=== PATIENT | female | born 1935 | race Caucasian/White ===

== ENCOUNTER → 2016-06-29 | Outpatient (REF) | payer MEDICARE ==
[~2016-06-29] MED LIST: ASPI81TA85 PO; ATEN100T PO; CALCIUM D PO; CENTTAB12 PO; CO Q PO; FISH5CAP PO; FLAX1300 PO; HYDR25TAB PO; VITA500C24 PO
== END ==
LOC: M LAB REF 16:57
PROVIDERS: ATTEND Nurse Practitioner Family
DX: R35.0 Frequency of micturition (principal)

== ENCOUNTER → 2016-08-17 | Outpatient (CLI) | payer MEDICARE ==
--- NOTE | 2016-08-18 09:07 | DEXA ---
AP SPINE L1 - L4 1.062 -1.1 1.4 LT FEMUR TOTAL 0.872 -1.1 1.5 RT FEMUR TOTAL 0.840 -1.3 1.2 TOTAL BODY TOTAL OTHER DUAL FEMUR FRAX* ASSESSMENT Risk factors: Premature menopause. 10 year probability of fracture Major osteoporotic fracture 12.7 % Hip fracture 3.8 % COMMENTS: There is low bone density of the spine and hips. The density of the spine has increased 6.8% since the initial exam on 2005. The spine density has increased 0.0% since the most recent exam on 08/13/2014. The density of the left hip has increased 0.0% since the initial exam on 2005. The density of the left hip has decreased 0.7% since the most recent exam on . The density of the right hip has decreased 0.9% since the initial exam on 2005. The density of the right hip has decreased 1.3% since the most recent exam on . FOLLOW-UP: Recommendation for the next bone density exam: 2 years. KATH
== END ==
LOC: M WHC 10:22
PROVIDERS: ATTEND Nurse Practitioner Family
DX: M81.0 Age-related osteoporosis without current pathological fracture (principal)

== ENCOUNTER → 2016-09-28 | Outpatient (REF) | payer MEDICARE | LOC: M LAB REF 12:50 | PROVIDERS: ATTEND Physician Assistant | DX: J02.9 Acute pharyngitis, unspecified (principal) ==

== ENCOUNTER → 2016-11-04 | Outpatient (REF) | payer MEDICARE | LOC: M LAB REF 16:33 | PROVIDERS: ATTEND Nurse Practitioner Family | DX: N30.00 Acute cystitis without hematuria (principal) ==

== ENCOUNTER → 2016-12-28 | Outpatient (REF) | payer MEDICARE | LOC: M LAB REF 11:55 | PROVIDERS: ATTEND Nurse Practitioner Family | DX: N30.00 Acute cystitis without hematuria (principal) ==

== ENCOUNTER → 2017-11-19 | Outpatient (REF) | payer MEDICARE ==
[2017-11-19 21:39] LABS: APPEARANCE, URINE HAZY (CLEAR); BACTERIA, URINE AUTO NEGATIVE (NEGATIVE); BILIRUBIN, URINE AUTO NEGATIVE (NEGATIVE); BLOOD, URINE BLOOD NEGATIVE (NEGATIVE); COLOR, URINE YELLOW (YELLOW); GLUCOSE, URINE (UA) AUTO NEGATIVE (NEGATIVE); KETONE, URINE AUTO NEGATIVE (NEGATIVE); LEUKOCYTE ESTERASE, URINE AUTO 3+ (NEGATIVE); MUCUS, URINE SMALL (NEGATIVE); NITRITE, URINE AUTO NEGATIVE (NEGATIVE); PROTEIN, URINE AUTO NEGATIVE (NEGATIVE); RBC, URINE AUTO 1 /HPF (0-3); SQUAMOUS EPITHELIAL CELL UR AU 0 /HPF (0-6); UROBILINOGEN, URINE AUTO 0.2 mg/dL (0.0-2.0); WBC, URINE AUTO 10 /HPF (0-3)
== END ==
LOC: M LAB REF 21:10
DX: N39.0 Urinary tract infection, site not specified (principal)
CPT/HCPCS: 81001

== ENCOUNTER → 2017-12-17 | Outpatient (REF) | payer MEDICARE ==
[2017-12-17 22:15] LABS: APPEARANCE, URINE CLEAR (CLEAR); BACTERIA, URINE AUTO 1+ (NEGATIVE); BILIRUBIN, URINE AUTO NEGATIVE (NEGATIVE); BLOOD, URINE BLOOD NEGATIVE (NEGATIVE); COLOR, URINE YELLOW (YELLOW); GLUCOSE, URINE (UA) AUTO NEGATIVE (NEGATIVE); KETONE, URINE AUTO NEGATIVE (NEGATIVE); LEUKOCYTE ESTERASE, URINE AUTO NEGATIVE (NEGATIVE); MUCUS, URINE SMALL (NEGATIVE); NITRITE, URINE AUTO NEGATIVE (NEGATIVE); PROTEIN, URINE AUTO NEGATIVE (NEGATIVE); RBC, URINE AUTO 0 /HPF (0-3); SPECIFIC GRAVITY URINE AUTO 1.006 (1.002-1.035); SQUAMOUS EPITHELIAL CELL UR AU 0 /HPF (0-6); UROBILINOGEN, URINE AUTO 0.2 mg/dL (0.0-2.0); WBC, URINE AUTO 0 /HPF (0-3)
== END ==
LOC: M LAB REF 21:54
DX: N39.0 Urinary tract infection, site not specified (principal)
CPT/HCPCS: 81001

== ENCOUNTER → 2018-03-24 | Outpatient (REF) | payer MEDICARE | LOC: M LAB REF 15:52 | PROVIDERS: ATTEND Nurse Practitioner Family | DX: N39.0 Urinary tract infection, site not specified (principal) ==

== ENCOUNTER → 2018-07-08 | Outpatient (REF) | payer MEDICARE ==
[~2018-07-08] MED LIST changes: +HYDR-2541 PO; -HYDR25TAB PO
[2018-07-08 19:44] LABS: APPEARANCE, URINE CLEAR (CLEAR); BACTERIA, URINE AUTO NEGATIVE (NEGATIVE); BILIRUBIN, URINE AUTO NEGATIVE (NEGATIVE); BLOOD, URINE BLOOD NEGATIVE (NEGATIVE); COLOR, URINE YELLOW (YELLOW); GLUCOSE, URINE (UA) AUTO NEGATIVE (NEGATIVE); KETONE, URINE AUTO NEGATIVE (NEGATIVE); LEUKOCYTE ESTERASE, URINE AUTO TRACE (NEGATIVE); NITRITE, URINE AUTO NEGATIVE (NEGATIVE); PROTEIN, URINE AUTO NEGATIVE (NEGATIVE); RBC, URINE AUTO 0 /HPF (0-3); SPECIFIC GRAVITY URINE AUTO 1.005 (1.002-1.035); SQUAMOUS EPITHELIAL CELL UR AU 0 /HPF (0-6); UROBILINOGEN, URINE AUTO 0.2 mg/dL (0.0-2.0); WBC, URINE AUTO 0 /HPF (0-3)
== END ==
LOC: M LAB REF 10:59
PROVIDERS: ATTEND Nurse Practitioner Family
DX: N39.0 Urinary tract infection, site not specified (principal)

== ENCOUNTER → 2018-07-21 | Outpatient (REF) | payer MEDICARE ==
[2018-07-21 14:31] LABS: APPEARANCE, URINE CLEAR (CLEAR); BACTERIA, URINE AUTO NEGATIVE (NEGATIVE); BILIRUBIN, URINE AUTO NEGATIVE (NEGATIVE); BLOOD, URINE BLOOD NEGATIVE (NEGATIVE); COLOR, URINE YELLOW (YELLOW); GLUCOSE, URINE (UA) AUTO NEGATIVE (NEGATIVE); KETONE, URINE AUTO NEGATIVE (NEGATIVE); LEUKOCYTE ESTERASE, URINE AUTO 2+ (NEGATIVE); MUCUS, URINE SMALL (NEGATIVE); NITRITE, URINE AUTO NEGATIVE (NEGATIVE); PROTEIN, URINE AUTO NEGATIVE (NEGATIVE); RBC, URINE AUTO 5 /HPF (0-3); SPECIFIC GRAVITY URINE AUTO 1.016 (1.002-1.035); SQUAMOUS EPITHELIAL CELL UR AU 0 /HPF (0-6); UROBILINOGEN, URINE AUTO 0.2 mg/dL (0.0-2.0); WBC, URINE AUTO 1 /HPF (0-3)
== END ==
LOC: M LAB REF 12:42
PROVIDERS: ATTEND Internal Medicine
DX: R35.0 Frequency of micturition (principal); N39.0 Urinary tract infection, site not specified

== ENCOUNTER → 2018-07-24 | Outpatient (REF) | payer MEDICARE | LOC: M LAB REF 16:16 | PROVIDERS: ATTEND Nurse Practitioner Family | DX: N95.2 Postmenopausal atrophic vaginitis (principal); M54.5 Low back pain ==

== ENCOUNTER → 2018-08-19 | Outpatient (REF) | payer MEDICARE ==
[2018-08-19 19:38] LABS: APPEARANCE, URINE MANUAL HAZY (CLEAR); COLOR, URINE MANUAL YELLOW (YELLOW); PH,URINE MAN 8.5 UNITS (5.0 - 7.0)
[2018-08-19 19:39] LABS: BILIRUBIN, URINE MANUAL NEGATIVE (NEGATIVE); BLOOD URINE MANUAL NEGATIVE (NEGATIVE); GLUCOSE, URINE (UA) MANUAL NEGATIVE (NEGATIVE); KETONE, URINE MANUAL NEGATIVE (NEGATIVE); LEUKOCYTE ESTERASE, URINE MAN TRACE (NEGATIVE); NITRITE, URINE MANUAL TRACE (NEGATIVE); PROTEIN, URINE MANUAL NEGATIVE (NEGATIVE); SPECIFIC GRAVITY,URINE MANUAL 1.005 (1.002-1.035); UROBILINOGEN, URINE MANUAL NORMAL (NORMAL)
[2018-08-19 19:42] LABS: AMORPHOUS SEDIMENT, URINE SMALL AMOUNT (NEGATIVE); BACTERIA, URINE SMALL AMOUNT; CALCIUM OXALATE CRYSTALS,URINE SMALL AMOUNT /hpf; HYALINE CAST, URINE NONE SEEN /lpf (0-1); RBC, URINE NONE SEEN /hpf (0-3); SQUAMOUS EPITHELIAL CELL URINE SMALL AMOUNT /hpf (SMALL AMT); WBC, URINE 0-1 /hpf (0-3)
== END ==
LOC: M LAB REF 11:22
PROVIDERS: ATTEND Physician Assistant Medical
DX: N39.0 Urinary tract infection, site not specified (principal)

== ENCOUNTER → 2018-09-12 | Outpatient (REF) | payer MEDICARE | LOC: M LAB REF 16:43 | PROVIDERS: ATTEND Internal Medicine | DX: R30.0 Dysuria (principal) ==

== ENCOUNTER → 2018-09-26 | Outpatient (CLI) | payer MEDICARE ==
--- NOTE | 2018-09-26 09:26 | REPMRS ---
Patient History The patient states she had a clinical breast exam in 08/2018. Family history of colorectal cancer at age 50 or over in father. 3D TOMOSYNTHESIS WAS PERFORMED. The Henrique Hawkins lifetime risk for breast cancer is 0.2%. Digital Woman Screen Mammo: September 26, 2018 - Exam #: [id number] Bilateral CC and MLO view(s) were taken. Technologist: Heaven Salguero, Technologist Prior study comparison: August 13, 2014, digital woman screen mammo performed at [facility]. August 07, 2013, digital woman screen mammo performed at [facility]. FINDINGS: The breast tissue is heterogeneously dense. This may lower the sensitivity of mammography. There has been no change in the appearance of the mammogram from the prior studies. There is a moderate amount of residual fibroglandular tissue which is fairly symmetric. There is no interval development of dominant mass, areas of architectural distortion, or clustered microcalcification typical of malignancy. Assessment: BI-RADS/ACR category 1 mammogram. Negative Mammogram. Recommendation Routine screening mammogram in 1 year (for women over age 40). This mammogram was interpreted with the aid of an FDA-approved computer-aided dectection system. Electronically Signed By: Pierre Whitten MD 09/26/18 0935
--- NOTE | 2018-10-03 13:38 | DEXA ---
AP SPINE L1 - L4 1.122 -0.6 1.3 LT FEMUR TOTAL 0.859 -1.2 1.1 LT NECK 0.868 -1.2 1.1 RT FEMUR TOTAL 0.823 -1.5 0.8 RT NECK 0.796 -1.7 0.6 TOTAL BODY TOTAL OTHER COMMENTS: Normal bone densitometry of the spine. There is low bone density of the hips. The increased density of the spine does represent a significant change. The decreased density of the left hip does not represent a significant change. The decreased density of the right hip does represent a significant change. The density of the spine has increased 12.4% since the initial exam on 12/20/2003. The spine density has increased 5.6% since the most recent exam on 08/17/2016. The density of the left hip has decreased 6.0% since the initial exam on 12/20/2003. The density of the left hip has decreased 1.5% the most recent exam on 08/17/2016. The density of the right hip has decreased 7.0% since the initial exam on 12/20/2003. The density of the right hip has decreased 2.0% since the most recent exam on 08/17/2016. FOLLOW-UP: Recommendation for the next bone density exam: 2 years. KATH
== END ==
LOC: M WHC 07:52
PROVIDERS: ATTEND Nurse Practitioner Family
DX: Z12.31 Encounter for screening mammogram for malignant neoplasm of breast (principal); M81.0 Age-related osteoporosis without current pathological fracture; Z80.0 Family history of malignant neoplasm of digestive organs; M85.851 Other specified disorders of bone density and structure, right thigh; M85.852 Other specified disorders of bone density and structure, left thigh; M85.88 Other specified disorders of bone density and structure, other site

== ENCOUNTER → 2018-09-27 | Outpatient (REF) | payer MEDICARE | LOC: M LAB REF 11:11 | PROVIDERS: ATTEND Internal Medicine | DX: R30.0 Dysuria (principal); M54.5 Low back pain ==

== ENCOUNTER → 2018-10-17 | Outpatient (REF) | payer MEDICARE ==
[2018-10-17 19:17] LABS: BACTERIA, URINE AUTO NEGATIVE (NEGATIVE); MUCUS, URINE SMALL (NEGATIVE); RBC, URINE AUTO 4 /HPF (0-3); SQUAMOUS EPITHELIAL CELL UR AU 0 /HPF (0-6); WBC, URINE AUTO 1 /HPF (0-3)
== END ==
LOC: M SMT 16:53
PROVIDERS: ATTEND Specialist
DX: M54.5 Low back pain (principal); N39.0 Urinary tract infection, site not specified
CPT/HCPCS: 81015; 87086; G0463

== ENCOUNTER → 2019-03-17 | Outpatient (REF) | payer MEDICARE ==
[2019-03-17 14:39] LABS: APPEARANCE, URINE HAZY (CLEAR); BACTERIA, URINE AUTO NEGATIVE (NEGATIVE); BILIRUBIN, URINE AUTO NEGATIVE (NEGATIVE); BLOOD, URINE BLOOD NEGATIVE (NEGATIVE); COLOR, URINE YELLOW (YELLOW); GLUCOSE, URINE (UA) AUTO NEGATIVE (NEGATIVE); KETONE, URINE AUTO NEGATIVE (NEGATIVE); LEUKOCYTE ESTERASE, URINE AUTO NEGATIVE (NEGATIVE); NITRITE, URINE AUTO NEGATIVE (NEGATIVE); PROTEIN, URINE AUTO NEGATIVE (NEGATIVE); RBC, URINE AUTO 0 /HPF (0-3); SPECIFIC GRAVITY URINE AUTO 1.019 (1.002-1.035); SQUAMOUS EPITHELIAL CELL UR AU 1 /HPF (0-6); UROBILINOGEN, URINE AUTO 0.2 mg/dL (0.0-2.0); WBC, URINE AUTO 0 /HPF (0-3)
== END ==
LOC: M LAB REF 14:23
PROVIDERS: ATTEND Physician Assistant
DX: N39.0 Urinary tract infection, site not specified (principal)

== ENCOUNTER → 2019-11-08 | Outpatient (CLI) | payer MEDICARE ==
[~2019-11-08] MED LIST changes: -ASPI81TA85 PO; +ASPI81TA86 PO
--- NOTE | 2019-11-26 15:49 | REPMRS ---
Patient History The patient states she had a clinical breast exam in August 2019. Patient is postmenopausal. Family history of colorectal cancer at age 50 or over in father. Digital Woman Screen Mammo: November 08, 2019 - Exam #: [id number] Bilateral CC and MLO view(s) were taken. Technologist: Rosey Cerrato, Technologist Prior study comparison: September 26, 2018, bilateral digital woman screen mammo performed at [facility]. August 13, 2014, digital woman screen mammo performed at [facility]. August 07, 2013, digital woman screen mammo performed at [facility]. FINDINGS: The breast tissue is heterogeneously dense. This may lower the sensitivity of mammography. The Volpara volumetric breast density category is: C. There is a moderate amount of heterogeneously dense fibroglandular tissue which is fairly symmetric. There is no interval development of dominant mass, architectural distortion, or grouped microcalcification typical of malignancy. There has been no change in the appearance of the mammogram from the prior studies. 3-D tomosynthesis shows no additional findings. Assessment: BI-RADS/ACR category 1 mammogram. Negative Mammogram. Recommendation Routine screening mammogram of both breasts in 1 year (for women over age 40). This mammogram was interpreted with the aid of an FDA-approved computer-aided dectection system. Electronically Signed By: Dangelo Flores MD 11/26/19 0245
== END ==
LOC: M WHC 12:33
PROVIDERS: ATTEND Registered Nurse
DX: Z12.31 Encounter for screening mammogram for malignant neoplasm of breast (principal); Z80.0 Family history of malignant neoplasm of digestive organs

== ENCOUNTER → 2019-11-29 | Outpatient (REF) | payer MEDICARE ==
[2019-11-29 13:31] LABS: APPEARANCE, URINE CLEAR (CLEAR); BACTERIA, URINE AUTO NEGATIVE (NEGATIVE); BILIRUBIN, URINE AUTO NEGATIVE (NEGATIVE); BLOOD, URINE BLOOD NEGATIVE (NEGATIVE); COLOR, URINE STRAW (YELLOW); GLUCOSE, URINE (UA) AUTO NEGATIVE (NEGATIVE); KETONE, URINE AUTO NEGATIVE (NEGATIVE); LEUKOCYTE ESTERASE, URINE AUTO NEGATIVE (NEGATIVE); MUCUS, URINE SMALL (NEGATIVE); NITRITE, URINE AUTO NEGATIVE (NEGATIVE); PROTEIN, URINE AUTO NEGATIVE (NEGATIVE); RBC, URINE AUTO 1 /HPF (0-3); SPECIFIC GRAVITY URINE AUTO 1.006 (1.002-1.035); SQUAMOUS EPITHELIAL CELL UR AU 0 /HPF (0-6); UROBILINOGEN, URINE AUTO 0.2 mg/dL (0.0-2.0); WBC, URINE AUTO 0 /HPF (0-3)
== END ==
LOC: M LAB REF 11:47
PROVIDERS: ATTEND Physician Assistant
DX: N39.0 Urinary tract infection, site not specified (principal)

== ENCOUNTER → 2019-12-08 | Outpatient (REF) | payer MEDICARE ==
[2019-12-08 21:41] LABS: APPEARANCE, URINE CLEAR (CLEAR); BACTERIA, URINE AUTO NEGATIVE (NEGATIVE); BILIRUBIN, URINE AUTO NEGATIVE (NEGATIVE); BLOOD, URINE BLOOD NEGATIVE (NEGATIVE); COLOR, URINE YELLOW (YELLOW); GLUCOSE, URINE (UA) AUTO NEGATIVE (NEGATIVE); KETONE, URINE AUTO NEGATIVE (NEGATIVE); LEUKOCYTE ESTERASE, URINE AUTO NEGATIVE (NEGATIVE); NITRITE, URINE AUTO NEGATIVE (NEGATIVE); PROTEIN, URINE AUTO NEGATIVE (NEGATIVE); RBC, URINE AUTO 2 /HPF (0-3); SPECIFIC GRAVITY URINE AUTO 1.024 (1.002-1.035); SQUAMOUS EPITHELIAL CELL UR AU 1 /HPF (0-6); UROBILINOGEN, URINE AUTO 0.2 mg/dL (0.0-2.0); WBC, URINE AUTO 1 /HPF (0-3)
== END ==
LOC: M LAB REF 21:10
PROVIDERS: ATTEND Physician Assistant
DX: N39.0 Urinary tract infection, site not specified (principal)

== ENCOUNTER → 2020-07-31 | Outpatient (CLI) | payer MEDICARE ==
--- NOTE | 2020-07-31 15:32 | REP ---
INDICATION: BILATERAL SCIATICA PAIN. COMPARISON: None TECHNIQUE: AP and lateral views FINDINGS: The bones are demineralized. IMPRESSION: There is no evidence of an acute fracture or destructive osseous lesion. <Electronically signed by Ha Rg > 07/31/20 [id number]
== END ==
LOC: M WUC 15:06
PROVIDERS: ATTEND Physician Assistant Medical
DX: M54.31 Sciatica, right side (principal); M54.32 Sciatica, left side

== ENCOUNTER → 2020-08-13 | Outpatient (CLI) | payer MEDICARE ==
--- NOTE | 2020-08-13 12:11 | REP ---
INDICATION: RT INGUINAL PAIN ? HERNIA. COMPARISON: None TECHNIQUE: Scanning over the inguinal region bilaterally FINDINGS: Adipose tissue is seen near the inguinal ring bilaterally. There is no bowel containing inguinal hernia on either side. This finding changes little with Valsalva. IMPRESSION: No bowel containing inguinal hernia. Findings as described above. <Electronically signed by Ha Rg > 08/13/20 [id number]
== END ==
LOC: M RAD 11:12
PROVIDERS: ATTEND Physician Assistant Medical
DX: R10.9 Unspecified abdominal pain (principal)

== ENCOUNTER → 2020-08-27 | Outpatient (REF) | payer MEDICARE ==
[2020-08-27 17:13] LABS: APPEARANCE, URINE CLEAR (CLEAR); BACTERIA, URINE AUTO NEGATIVE (NEGATIVE); BILIRUBIN, URINE AUTO NEGATIVE (NEGATIVE); BLOOD, URINE BLOOD NEGATIVE (NEGATIVE); COLOR, URINE YELLOW (YELLOW); GLUCOSE, URINE (UA) AUTO NEGATIVE (NEGATIVE); KETONE, URINE AUTO NEGATIVE (NEGATIVE); LEUKOCYTE ESTERASE, URINE AUTO NEGATIVE (NEGATIVE); NITRITE, URINE AUTO NEGATIVE (NEGATIVE); PROTEIN, URINE AUTO NEGATIVE (NEGATIVE); RBC, URINE AUTO 1 /HPF (0-3); SPECIFIC GRAVITY URINE AUTO 1.008 (1.002-1.035); SQUAMOUS EPITHELIAL CELL UR AU 0 /HPF (0-6); UROBILINOGEN, URINE AUTO 0.2 mg/dL (0.0-2.0); WBC, URINE AUTO 0 /HPF (0-3)
== END ==
LOC: M LAB REF 16:45
PROVIDERS: ATTEND Physician Assistant
DX: N39.0 Urinary tract infection, site not specified (principal)

== ENCOUNTER → 2020-09-17 | Outpatient (CLI) | payer MEDICARE ==
--- NOTE | 2020-09-17 10:00 | REP ---
INDICATION: PAIN. COMPARISON: Comparison lumbar spine radiographs are from July 09, 2016.. TECHNIQUE: Six views of the lumbar spine are provided. FINDINGS: Lumbar vertebral body heights are preserved. Alignment is normal. There is degenerative disc disease most pronounced at L2-3 with endplate sclerosis and disc space narrowing. This is more pronounced than on the July 09, 2016 prior radiographs although it is not new. There is also degenerative narrowing of the L5-S1 disc. No bony destructive lesion is seen. Pedicles and posterior elements are intact. Vascular calcification is seen in a normal caliber aorta. There are clips in the right upper quadrant. Sacrum and SI joints are intact. The visualized bowel gas pattern is normal. IMPRESSION: Degenerative spondylosis changes. Degenerative disc disease is most pronounced at the L2-3 and to a lesser extent, L5-S1. Changes are more pronounced than on the 2016 prior study. No acute bony abnormality. <Electronically signed by Dangelo Flores > 09/17/20 0910
--- NOTE | 2020-09-17 10:58 | REP ---
INDICATION: PAIN. COMPARISON: Comparison rib series radiographs are from January 14, 2011.. TECHNIQUE: Frontal and lateral views of the thoracic spine are obtained. FINDINGS: Thoracic vertebral body heights are preserved. Alignment is normal. Disc spaces are maintained. There is discogenic spurring anteriorly in the midthoracic spine mild in degree. The heart is not enlarged. The visualized lung alexander are clear. There is some vascular calcification and tracheobronchial tree calcification. Left coronary artery stent material is visible. Pedicles and posterior elements are intact. No paravertebral soft tissue mass is seen. IMPRESSION: Mild degenerative disc changes. Otherwise negative thoracic spine series. <Electronically signed by Dangelo Flores > 09/17/20 [id number]
== END ==
LOC: M WUC 08:54
PROVIDERS: ATTEND Internal Medicine
DX: R10.9 Unspecified abdominal pain (principal); M51.36 Other intervertebral disc degeneration, lumbar region; M51.37 Other intervertebral disc degeneration, lumbosacral region; M51.34 Other intervertebral disc degeneration, thoracic region

== ENCOUNTER → 2020-10-06 | Outpatient (CLI) | payer MEDICARE ==
[~2020-10-06] MED LIST changes: +GASTROGRAFIN SOLUTION 30ML (Q9963) As Ordered ONE; +ISOVUE-370 76% 100ML VIAL As Ordered ONE
== END ==
LOC: M RAD 13:50
PROVIDERS: ATTEND Internal Medicine
DX: R10.30 Lower abdominal pain, unspecified (principal)
CPT/HCPCS: 74178; Q9963; Q9967

== ENCOUNTER → 2020-12-02 | Outpatient (REF) | payer MEDICARE ==
[~2020-12-02] MED LIST changes: -GASTROGRAFIN SOLUTION 30ML (Q9963) As Ordered ONE; -ISOVUE-370 76% 100ML VIAL As Ordered ONE
[2020-12-02 12:18] LABS: APPEARANCE, URINE CLEAR (CLEAR); BACTERIA, URINE AUTO 1+ (NEGATIVE); BILIRUBIN, URINE AUTO NEGATIVE (NEGATIVE); BLOOD, URINE BLOOD NEGATIVE (NEGATIVE); COLOR, URINE STRAW (YELLOW); GLUCOSE, URINE (UA) AUTO NEGATIVE (NEGATIVE); KETONE, URINE AUTO NEGATIVE (NEGATIVE); LEUKOCYTE ESTERASE, URINE AUTO NEGATIVE (NEGATIVE); MUCUS, URINE SMALL (NEGATIVE); NITRITE, URINE AUTO NEGATIVE (NEGATIVE); PROTEIN, URINE AUTO NEGATIVE (NEGATIVE); RBC, URINE AUTO 0 /HPF (0-3); SPECIFIC GRAVITY URINE AUTO 1.005 (1.002-1.035); SQUAMOUS EPITHELIAL CELL UR AU 0 /HPF (0-6); UROBILINOGEN, URINE AUTO 0.2 mg/dL (0.0-2.0); WBC, URINE AUTO 0 /HPF (0-3)
== END ==
LOC: M LAB REF 11:28
PROVIDERS: ATTEND Physician Assistant Medical
DX: N39.0 Urinary tract infection, site not specified (principal)

== ENCOUNTER → 2021-05-27 | Outpatient (REF) | payer MEDICARE ==
[2021-05-27 12:41] LABS: APPEARANCE, URINE CLEAR (CLEAR); BACTERIA, URINE AUTO NEGATIVE (NEGATIVE); BILIRUBIN, URINE AUTO NEGATIVE (NEGATIVE); BLOOD, URINE BLOOD NEGATIVE (NEGATIVE); COLOR, URINE YELLOW (YELLOW); GLUCOSE, URINE (UA) AUTO NEGATIVE (NEGATIVE); KETONE, URINE AUTO NEGATIVE (NEGATIVE); LEUKOCYTE ESTERASE, URINE AUTO 1+ (NEGATIVE); NITRITE, URINE AUTO NEGATIVE (NEGATIVE); PROTEIN, URINE AUTO NEGATIVE (NEGATIVE); RBC, URINE AUTO 0 /HPF (0-3); SPECIFIC GRAVITY URINE AUTO 1.014 (1.002-1.035); SQUAMOUS EPITHELIAL CELL UR AU 1 /HPF (0-6); UROBILINOGEN, URINE AUTO 0.2 mg/dL (0.0-2.0); WBC, URINE AUTO 0 /HPF (0-3)
== END ==
LOC: M LAB REF 11:36
PROVIDERS: ATTEND Physician Assistant
DX: N39.0 Urinary tract infection, site not specified (principal)

== ENCOUNTER → 2021-06-17 | Outpatient (REF) | payer MEDICARE ==
[2021-06-17 17:13] LABS: BACTERIA, URINE AUTO NEGATIVE (NEGATIVE); RBC, URINE AUTO 0 /HPF (0-3); SQUAMOUS EPITHELIAL CELL UR AU 0 /HPF (0-6); WBC, URINE AUTO 0 /HPF (0-3)
== END ==
LOC: M SMT 16:44
PROVIDERS: ATTEND Specialist
DX: R10.2 Pelvic and perineal pain (principal)

== ENCOUNTER → 2021-08-26 | Outpatient (CLI) | payer MEDICARE | LOC: M WUC 09:28 | PROVIDERS: ATTEND Internal Medicine | DX: M51.36 Other intervertebral disc degeneration, lumbar region (principal); M51.37 Other intervertebral disc degeneration, lumbosacral region ==

== ENCOUNTER → 2021-11-09 | Outpatient (CLI) | payer MEDICARE | LOC: M WHC 10:48 | PROVIDERS: ATTEND Internal Medicine | DX: Z13.820 Encounter for screening for osteoporosis (principal); M85.851 Other specified disorders of bone density and structure, right thigh; M85.852 Other specified disorders of bone density and structure, left thigh ==

== ENCOUNTER 2022-06-10 13:27 | Emergency (ER) | payer MEDICARE ==
[~2022-06-10] VITALS: Ht 152.4 cm; Wt 45.5 kg
[2022-06-10] MEDS ORDERED: NS 1,000 ML IV SCH (14:00)
[2022-06-10] MEDS ORDERED: ASPIRIN 81MG CHEW TABLET PO ONE (14:00)
[2022-06-10 14:17] LABS: BASO % 0.5 % (0.0-1.0); EOS # 0.1 10^3/uL (0.0-0.5); EOS % 0.8 % (0.0-3.0); HEMATOCRIT 40.4 % (36.0-47.0); HEMOGLOBIN 13.2 g/dl (12.0-15.5); LYMPH # 1.4 10^3/uL (1.5-5.0); LYMPH % 23.7 % (24.0-44.0); MEAN CORPUSCULAR HEMOGLOBIN 31.8 pg (27.0-33.0); MEAN CORPUSCULAR HGB CONC 32.7 g/dl (32.0-36.5); MEAN CORPUSCULAR VOLUME 97.3 fl (80.0-96.0); MONO # 0.5 10^3/uL (0.0-0.8); MONO % 8.1 % (2.0-8.0); NEUTROPHILS # 4.1 10^3/uL (1.5-8.5); NEUTROPHILS % 66.6 % (36.0-66.0); PLATELET COUNT, AUTOMATED 252 10^3/uL (150-450); RED BLOOD COUNT 4.15 10^6/uL (4.00-5.40); WHITE BLOOD COUNT 6.1 10^3/uL (4.0-10.0)
[2022-06-10] MEDS: NITROGLYCERIN 0.4MG SUBL TABLET SL PRN ×2 (14:19→15:56)
[2022-06-10 14:28] LABS: INR 0.97; PROTHROMBIN TIME 13.1 SECONDS (12.5-14.5)
[2022-06-10 15:39] LABS: CK-MB VALUE MASS < 1.0 NG/ML (<3.6)
[2022-06-10 15:41] LABS: CPK CREATINE PHOSPHOKINASE 42 U/L (34-145); MB/CK RELATIVE INDEX 2.38 (< OR =4)
[2022-06-10 15:42] LABS: ALBUMIN 3.8 G/DL (3.2-5.2); ALKALINE PHOSPHATASE 46 U/L (46-116); ALT/SGPT 15 U/L (7.0-40); AST/SGOT 16 U/L (<34); BILIRUBIN,DIRECT 0.1 MG/DL (<0.4); BILIRUBIN,TOTAL 0.5 MG/DL (0.3-1.2); BLOOD UREA NITROGEN 23 MG/DL (9-23); CARBON DIOXIDE LEVEL 26 MMOL/L (20-31); CHLORIDE LEVEL 105 MMOL/L (98-107); CREATININE FOR GFR 0.85 MG/DL (0.55-1.30); GLOMERULAR FILTRATION RATE > 60.0 (>32); GLUCOSE, FASTING 122 MG/DL (74-106); SODIUM LEVEL 139 MMOL/L (136-145)
[2022-06-10 15:49] LABS: CK-MB VALUE MASS < 1.0 NG/ML (<3.6)
[2022-06-10 15:50] LABS: CPK CREATINE PHOSPHOKINASE 35 U/L (34-145); MB/CK RELATIVE INDEX 2.85 (< OR =4)
[2022-06-10 15:56] VITALS: BP 192/70
[2022-06-10 15:57] LABS: RSV AMPLIFICATION NEGATIVE (NEGATIVE)
[2022-06-10 15:57] LABS: TOTAL PROTEIN 6.6 G/DL (5.7-8.2)
[2022-06-10 16:45] VITALS: BP 160/88
== END 2022-06-10 16:50 | disposition home or self-care (01) ==
LOC: M ED 13:27
DX: I20.9 Angina pectoris, unspecified (principal); I44.4 Left anterior fascicular block; I25.2 Old myocardial infarction; I10 Essential (primary) hypertension; Z88.2 Allergy status to sulfonamides; Z88.5 Allergy status to narcotic agent; Z88.8 Allergy status to other drugs, medicaments and biological substances; Z79.82 Long term (current) use of aspirin; Z79.810 Long term (current) use of selective estrogen receptor modulators (SERMs); Z79.899 Other long term (current) drug therapy

== ENCOUNTER → 2022-07-12 | Outpatient (CLI) | payer MEDICARE ==
[2022-07-12 13:32] LABS: BLOOD UREA NITROGEN 20 MG/DL (9-23); CALCIUM LEVEL 8.9 MG/DL (8.3-10.6); CARBON DIOXIDE LEVEL 29 MMOL/L (20-31); CHLORIDE LEVEL 103 MMOL/L (98-107); CREATININE FOR GFR 0.77 MG/DL (0.55-1.30); GLOMERULAR FILTRATION RATE > 60.0 (>32); GLUCOSE, FASTING 104 MG/DL (74-106); POTASSIUM SERUM 4.5 MMOL/L (3.5-5.1); SODIUM LEVEL 138 MMOL/L (136-145)
== END ==
LOC: M WUC 09:48
PROVIDERS: ATTEND Nurse Practitioner Family
DX: I10 Essential (primary) hypertension (principal)

== ENCOUNTER → 2022-07-12 | Outpatient (CLI) | payer MEDICARE ==
[~2022-07-12] MED LIST changes: +ISOVUE-370 76% 100ML VIAL As Ordered ONE
== END ==
LOC: M RAD 08:36
PROVIDERS: ATTEND Internal Medicine
DX: R91.8 Other nonspecific abnormal finding of lung field (principal); K44.9 Diaphragmatic hernia without obstruction or gangrene; I10 Essential (primary) hypertension
CPT/HCPCS: 36415; 71260; 80048; Q9967

== ENCOUNTER → 2023-01-25 | Outpatient (REF) | payer MEDICARE ==
[~2023-01-25] MED LIST changes: -ISOVUE-370 76% 100ML VIAL As Ordered ONE
[2023-01-25 13:38] LABS: APPEARANCE, URINE MANUAL CLEAR (CLEAR); COLOR, URINE MANUAL YELLOW (YELLOW)
[2023-01-25 13:39] LABS: BILIRUBIN, URINE MANUAL NEGATIVE (NEGATIVE); GLUCOSE, URINE (UA) MANUAL NEGATIVE (NEGATIVE); KETONE, URINE MANUAL NEGATIVE (NEGATIVE); PROTEIN, URINE MANUAL TRACE mg/dL (NEGATIVE); SPECIFIC GRAVITY,URINE MANUAL 1.015 (1.002-1.035); UROBILINOGEN, URINE MANUAL NORMAL (NORMAL)
[2023-01-25 13:40] LABS: BLOOD URINE MANUAL NEGATIVE (NEGATIVE); LEUKOCYTE ESTERASE, URINE MAN TRACE (NEGATIVE); NITRITE, URINE MANUAL NEGATIVE (NEGATIVE)
== END ==
LOC: M SMT 12:45
PROVIDERS: ATTEND Specialist
DX: N30.90 Cystitis, unspecified without hematuria (principal)

== ENCOUNTER → 2023-02-01 | Outpatient (CLI) | payer MEDICARE | LOC: M RAD 08:57 | PROVIDERS: ATTEND Specialist | DX: I70.1 Atherosclerosis of renal artery (principal); N30.90 Cystitis, unspecified without hematuria; I1A.0 Resistant hypertension ==

== ENCOUNTER → 2023-05-02 | Outpatient (CLI) | payer MEDICARE ==
[~2023-05-02] MED LIST changes: +ISOVUE-370 76% 100ML VIAL As Ordered ONE
== END ==
LOC: M RAD 09:49
PROVIDERS: ATTEND Surgery Vascular Surgery
DX: I70.1 Atherosclerosis of renal artery (principal)
CPT/HCPCS: 74175; Q9967

== ENCOUNTER → 2023-06-02 | Outpatient (REF) | payer MEDICARE ==
[~2023-06-02] MED LIST changes: -ISOVUE-370 76% 100ML VIAL As Ordered ONE
[2023-06-02 12:39] LABS: INR 1.04; PARTIAL THROMBOPLASTIN TIME 33.8 SECONDS (24.8-34.2); PROTHROMBIN TIME 13.3 SECONDS (12.5-14.5)
== END ==
LOC: M LAB REF 11:47
PROVIDERS: ATTEND Internal Medicine
DX: Z01.818 Encounter for other preprocedural examination (principal); D69.8 Other specified hemorrhagic conditions

== ENCOUNTER → 2023-11-30 | Outpatient (CLI) | payer MEDICARE | LOC: M RAD 08:16 | PROVIDERS: ATTEND Surgery Vascular Surgery | DX: I70.1 Atherosclerosis of renal artery (principal) ==